=== PATIENT | male | born 1975 | race Caucasian/White ===

== ENCOUNTER 2018-04-04 21:18 | Outpatient (CLI) | payer OTHER | END 2018-04-04 21:19 | disposition home or self-care (01) | LOC: LAB 21:18 | PROVIDERS: ATTEND Psychiatry & Neurology Psychiatry | DX: Z01.89 Encounter for other specified special examinations (principal) ==

== ENCOUNTER 2019-05-26 16:20 | Emergency (ER) | payer OTHER ==
[2019-05-26] MEDS ORDERED: LIDOCAINE 2% 10 ML MDV SUBQ STA (17:52)
[2019-05-26] MEDS ORDERED: TETANUS/DIPHTHERIA/PERTUSSIS 0.5 ML SYRINGE IM ONE (17:55)
--- NOTE | 2019-05-26 18:16 | ED Physician Documentation ---
History of Present Illness - Stated complaint Stated Complaint: CUT TOP LIP/INJ - Chief complaint Chief Complaint: Wound - History obtained from History obtained from: Patient, Family - History of Present Illness Timing: Today Pain level max: 0 Pain level now: 0 - Additonal information Additional information: Laceration to upper lip from elizabeth knife. Bleeding controlled. Last tetanus unknown. Nothing makes it better or worse. Review of Systems Constitutional: denies: Fever GI: denies: Vomiting Neurologic: denies: LOC PD PAST MEDICAL HISTORY - Past Medical History Past Medical History: Yes Cardiovascular: None Respiratory: None Neuro: None Endocrine/Autoimmune: None GI: None : None HEENT: None Psych: None Musculoskeletal: None Derm: None - Past Surgical History Past Surgical History: Yes General: Appendectomy - Present Medications Home Medications: Ambulatory Orders Medication Instructions Recorded Confirmed No Known Home Medications 05/26/19 05/26/19 - Allergies Allergies/Adverse Reactions: Allergies Allergy/AdvReac Type Severity Reaction Status Date / Time No Known Drug Allergies Allergy Verified 05/26/19 16:30 - Social History Does the pt smoke?: No Smoking Status: Never smoker Does the pt drink ETOH?: No Does the pt have substance abuse?: No - Immunizations Immunizations are current?: Yes - POLST Patient has POLST: No PD ED PE NORMAL - Vitals Vital signs reviewed: Yes - General General: Alert and oriented X 3, No acute distress - HEENT HEENT: Moist mucous membranes, Other (3 cm laceration to the upper lip, crosses the vermilion border. Not through and through. Linear) - Neck Neck: Supple, no meningeal sign - Derm Derm: Warm and dry - Neuro Neuro: Alert and oriented X 3 Results - Vitals Vitals: Vital Signs - 24 hr 05/26/19 16:30 Temperature 36.7 C Heart Rate 82 Respiratory 18 Rate Blood Pressure 144/98 H O2 Saturation 97 Oxygen O2 Source Room air Procedures - Laceration (location) upper lip Length in cm: 3 Wound type: Linear, Into subcut fat, Clean Neurovascular status: Sensory intact, Motor intact, Vascular intact Anesthesia: Lidocaine 2% Wound Preparation: Irrigated copiously NS Skin layer closure: Nylon, Interrupted, Size #-0 - enter number (5), Sutures - enter # (5) Other: Patient tolerated well, No complications, Neurovascular intact, Tetanus booster given (tdap) Complexity: Other (car border) PD MEDICAL DECISION MAKING - ED course Complexity details: considered differential, d/w patient, d/w family ED course: Lip laceration repaired. Tolerated well. Crosses the vermilion border. Car border was carefully aligned. Warnings of infection and instructions on wound care given at bedside. Also counseled on how to minimize scarring. Patient counseled regarding signs and symptoms for which I believe and urgent re-evaluation would be necessary. Patient with good understanding of and agreement to plan and is comfortable going home at this time This document was made in part using voice recognition software. While efforts are made to proofread this document, sound alike and grammatical errors may occur. Departure - Departure Disposition: 01 Home, Self Care Clinical Impression: Lip laceration Qualifiers: Encounter type: initial encounter Qualified Code(s): S01.511A - Laceration without foreign body of lip, initial encounter Condition: Good Instructions: ED Laceration Mouth Follow-Up: your,doctor in 5-7 days for suture removal [Other] Comments: Return if you notice redness, swelling or drainage from the wound. Follow-up with your doctor or return here in approximately 5 to 7 days for suture removal.
[2019-05-26 18:27] VITALS: BP 128/93
== END 2019-05-26 18:28 | disposition home or self-care (01) ==
LOC: ED 16:20
DX: S01.511A Laceration without foreign body of lip, initial encounter (principal); W27.8XXA Contact with other nonpowered hand tool, initial encounter; Y93.H3 Activity, building and construction; Y99.0 Civilian activity done for income or pay; Z23 Encounter for immunization
CPT/HCPCS: 1040M; 13152; 40650; 90471; 99283

== ENCOUNTER 2019-05-28 06:12 | Emergency (ER) | payer OTHER ==
[2019-05-28 06:24] VITALS: BP 130/96
--- NOTE | 2019-05-28 06:31 | ED Physician Documentation ---
PD HPI WOUND RECHECK - Stated complaint Stated Complaint: RECHECK LIP LAC - Chief complaint Chief Complaint: Laceration - Histroy obtained from History obtained from: Patient - History of Present Illness Location: Lip Timing - onset: How many days ago (2) Associated symptoms: Swelling, Pain. No: Fever, Redness, Drainage Similar symptoms before: Diagnosis (lip laceration) Recently seen: Emergency Dept - Additional information Additional information: 44-year-old male was seen in the emergency department 2 days ago for a laceration to his upper lip with a elizabeth knife. The repair was done by Dr. Hardin and the patient is come back to the emergency department with concerns about the discoloration under his lip and the swelling that is associated with it he has about 5 out of 10 pain. He has not had any drainage redness or fever Review of Systems Constitutional: denies: Fever, Chills, Myalgias Eyes: denies: Decreased vision Ears: denies: Ear pain Nose: denies: Rhinorrhea / runny nose, Congestion Throat: denies: Sore throat Skin: reports: Laceration (s) PD PAST MEDICAL HISTORY - Past Medical History Cardiovascular: None Respiratory: None Neuro: None Endocrine/Autoimmune: None GI: None : None HEENT: None Psych: None Musculoskeletal: None Derm: None - Past Surgical History Past Surgical History: Yes General: Appendectomy - Present Medications Home Medications: Ambulatory Orders Medication Instructions Recorded Confirmed No Known Home Medications 05/26/19 05/26/19 - Allergies Allergies/Adverse Reactions: Allergies Allergy/AdvReac Type Severity Reaction Status Date / Time No Known Drug Allergies Allergy Verified 05/26/19 16:30 - Social History Does the pt smoke?: No Smoking Status: Never smoker Does the pt drink ETOH?: No Does the pt have substance abuse?: No - Immunizations Immunizations are current?: Yes - POLST Patient has POLST: No PD ED PE NORMAL - Vitals Vital signs reviewed: Yes (hypertensive) - General General: Alert and oriented X 3, No acute distress, Well developed/nourished - HEENT HEENT: PERRL, EOMI, Other (There is a healing laceration to the upper lip on the right and the approximation of the prosper border is good, the wound itself is not inflamed, there is no drainage or dehisence. There is discoloration to the buccal mucousa with swelling consistent with a hematoma of the stated age. 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 It is quite dark consistent with a hematoma of the stated age. There is no evidence of infection or dehiscence of the wound. Departure - Departure Disposition: 01 Home, Self Care Clinical Impression: Wound hematoma Condition: Stable Instructions: ED Hematoma Follow-Up: Your, doctor [Other]
== END 2019-05-28 06:40 | disposition home or self-care (01) ==
LOC: ED 06:12
DX: S01.511A Laceration without foreign body of lip, initial encounter (principal); S00.531A Contusion of lip, initial encounter; W27.8XXA Contact with other nonpowered hand tool, initial encounter; Y99.0 Civilian activity done for income or pay
CPT/HCPCS: 99282